=== PATIENT | female | born 1945 | race American Indian/Alaskan Native ===

== ENCOUNTER 2021-11-05 02:12 | Emergency (ER) | payer MEDICARE ==
[2021-11-05 02:59] VITALS: BP 178/70
[2021-11-05] MEDS ORDERED: ONDANSETRON 4 MG ODT TAB PO ONE (04:13)
[2021-11-05] MEDS ORDERED: HYDROcodone/ACETAMINOPHEN 7.5-325MG TAB PO ONE (04:13)
[2021-11-05] MEDS ORDERED: predniSONE 50 MG TAB PO ONE (04:13)
--- NOTE | 2021-11-05 04:19 | Emergency Department Report ---
ED Extremity Problem HPI - General Chief complaint: Extremity Injury, Upper Stated complaint: SHOULDER PAIN Time Seen by Provider: 11/05/21 03:45 Source: patient, EMS Mode of arrival: Stretcher Limitations: No Limitations - History of Present Illness Initial comments: Patient is a 75-year-old -[place] female with a history of hypertension, chronic osteoarthritis, chronic rheumatoid arthritis, fibromyalgia and ESRD on hemodialysis who presents to the ED with complaint of acute onset persistent bilateral shoulder pain after lifting heavy luggage in transit from [facility], and finding herself on the street with no way to go in the cold weather about 6 hours ago. Patient states that the pain in her shoulders radiates to her fingers with tingling sensation. Patient states that the pain is typical of her chronic osteoarthritis and rheumatoid arthritis flareup. Patient states that she just returned from [facility] and was supposed to picked up by her caregiver but she failed to turn up at the place where they had agreed to meet for pickup. Patient states that due to the fact that she had multiple luggage and she had to drag them along as she walked on the street her bilateral shoulder pain got worse. Patient states that she therefore called the EMS to bring her to the ED for evaluation. Patient states that she usually takes Ultram 50 mg for her pain but ran out of the same about 1 week ago. Patient denies chest pain, shortness of breath, fever, chills, cough, sore throat, headache, fall, nausea and vomiting, abdominal pain or palpitations. MD Complaint: extremity pain (Bilateral shoulder pain), joint paint (Bilateral shoulder pain), other (chronic osteoarthritis; chronic pain syndrome) -: Sudden, hour(s) (6) Location: upper extremity (Bilateral shoulder pain) History of Same: Yes (chronic pain) -: Yes arthralgia, No associated dyspnea, No associated chest pain Radiation: none Severity scale (0 -10): 8 Quality: aching, sharp Improves with: nothing Worsens with: weight bearing, exertion, palpation Associated Symptoms: denies other symptoms, arthralgias (Painful bilateral shoulder pain). denies: chest pain, shortness of breath - Related Data Previous Rx's Medication Instructions Recorded Last Taken Type Acetaminophen [Tylenol] 500 mg PO Q6HR PRN #30 tablet 11/05/21 Unknown Rx traMADoL [Ultram] 50 mg PO Q6HR PRN #12 tablet 11/05/21 Unknown Rx Allergies Allergy/AdvReac Type Severity Reaction Status Date / Time No Known Allergies Allergy Unverified 11/05/21 02:49 ED Review of Systems ROS: Stated complaint: SHOULDER PAIN Other details as noted in HPI Constitutional: denies: chills, fever Eyes: denies: eye pain, eye discharge, vision change ENT: denies: ear pain, throat pain Respiratory: denies: cough, shortness of breath, wheezing Cardiovascular: denies: chest pain, palpitations Endocrine: no symptoms reported Gastrointestinal: denies: abdominal pain, nausea, vomiting, diarrhea Genitourinary: denies: urgency, dysuria, discharge Musculoskeletal: arthralgia (Bilateral shoulder pain). denies: back pain, joint swelling Skin: denies: rash, lesions Neurological: denies: headache, weakness, paresthesias Psychiatric: denies: anxiety, depression Hematological/Lymphatic: denies: easy bleeding, easy bruising ED Past Medical Hx - Past Medical History Previous Medical History?: Yes Hx Hypertension: Yes Hx Renal Disease: Yes (ESRD on hemodialysis) Hx Arthritis: Yes (Chronic osteoarthritis; chronic rheumatoid arthritis) Additional medical history: Chronic pain syndrome; fibromyalgia - Surgical History Past Surgical History?: No - Social History Smoking Status: Never Smoker - Medications Home Medications: Home Medications Medication Instructions Recorded Confirmed Last Taken Type Acetaminophen [Tylenol] 500 mg PO Q6HR PRN #30 tablet 11/05/21 Unknown Rx traMADoL [Ultram] 50 mg PO Q6HR PRN #12 tablet 11/05/21 Unknown Rx ED Physical Exam - General Limitations: No Limitations General appearance: alert, in no apparent distress - Head Head exam: Present: atraumatic, normocephalic, normal inspection - Eye Eye exam: Present: normal appearance, PERRL, EOMI Pupils: Present: normal accommodation - ENT ENT exam: Present: normal exam, normal orophraynx, mucous membranes moist, TM's normal bilaterally, normal external ear exam - Neck Neck exam: Present: normal inspection, full ROM. Absent: tenderness - Respiratory Respiratory exam: Present: normal lung sounds bilaterally. Absent: respiratory distress, wheezes, rales, rhonchi, chest wall tenderness, accessory muscle use, decreased breath sounds, other - Cardiovascular Cardiovascular Exam: Present: regular rate, normal rhythm, normal heart sounds. Absent: systolic murmur, diastolic murmur, rubs, gallop - GI/Abdominal GI/Abdominal exam: Present: soft, normal bowel sounds. Absent: tenderness, guarding, rebound, hyperactive bowel sounds, hypoactive bowel sounds, organomegaly, mass - Extremities Exam Extremities exam: Present: normal inspection, full ROM, tenderness (Palpable reproducible bilateral shoulder tenderness), normal capillary refill. Absent: pedal edema, joint swelling, calf tenderness - Back Exam Back exam: Present: normal inspection, full ROM. Absent: tenderness, CVA tenderness (R), CVA tenderness (L), muscle spasm, paraspinal tenderness, vertebral tenderness - Neurological Exam Neurological exam: Present: alert, oriented X3, CN II-XII intact, normal gait, reflexes normal - Psychiatric Psychiatric exam: Present: normal affect, normal mood - Skin Skin exam: Present: warm, dry, intact, normal color. Absent: rash ED Course Vital Signs 11/05/21 11/05/21 02:57 04:20 Temperature 98.7 F Pulse Rate 82 Respiratory 18 16 Rate Blood Pressure 178/70 O2 Sat by Pulse 97 Oximetry ED Medical Decision Making - Medical Decision Making This is a 75-year-old -[place] female with a history of hypertension, chronic osteoarthritis, chronic rheumatoid arthritis, fibromyalgia and ESRD on hemodialysis who presents to the ED with complaint of acute onset persistent bilateral shoulder pain after lifting heavy luggage in transit from [facility], and finding herself on the street with no way to go in the cold weather about 6 hours ago. Patient states that the pain in her shoulders radiates to her fingers with tingling sensation. Patient states that the pain is typical of her chronic osteoarthritis and rheumatoid arthritis flareup. Patient states that she just returned from [facility] and was supposed to picked up by her caregiver but she failed to turn up at the place where they had agreed to meet for pickup. Patient states that due to the fact that she had multiple luggage and she had to drag them along as she walked on the street her bilateral shoulder pain got worse. Patient states that she therefore called the EMS to bring her to the ED for evaluation. Patient states that she usually takes Ultram 50 mg for her pain but ran out of the same about 1 week ago. In the ED, patient is alert and oriented x3 and is not in any distress. Patient however appears to be in significant pain. Patient was treated for pain in the ED and observed in the ED for 2 hours. On reevaluation, patient pain is well controlled medication. Patient will discharge home on medications for pain and advised to follow-up with her primary care physician in 5 to 7 days for reevaluation or return to the ED immediately if symptoms get worse. - Differential Diagnosis Chronic pain syndrome; chronic osteoarthritis; muscle strain; Critical care attestation.: If time is entered above; I have spent that time in minutes in the direct care of this critically ill patient, excluding procedure time. ED Disposition Clinical Impression: Chronic pain syndrome, Chronic osteoarthritis Muscle strain of shoulder region Qualifiers: Encounter type: initial encounter Laterality: unspecified laterality Qualified Code(s): S46.919A - Strain of unspecified muscle, fascia and tendon at shoulder and upper arm level, unspecified arm, initial encounter Disposition: HOME / SELF CARE / HOMELESS Is pt being admited?: No Does the pt Need Aspirin: No Condition: Stable Instructions: Arthritis, [id number], Osteoarthritis, Muscle Strain, [id number], Chronic Pain, Adult Additional Instructions: Take medication with food, drink plenty of fluids and follow-up with primary care physician in 5 to 7 days for reevaluation. Return to the ED immediately if symptoms get worse. Prescriptions: Acetaminophen [Tylenol] 500 mg PO Q6HR PRN #30 tablet PRN Reason: Pain , Severe (7-10) traMADoL [Ultram] 50 mg PO Q6HR PRN #12 tablet PRN Reason: Pain Referrals: [facility] [Provider Group] - 7-10 days Time of Disposition: 04:19 Print Language: SAMI
== END 2021-11-05 04:53 | disposition home or self-care (01) ==
LOC: ED 02:12
DX: S46.919A Strain of unspecified muscle, fascia and tendon at shoulder and upper arm level, unspecified arm, initial encounter (principal); G89.4 Chronic pain syndrome; M19.90 Unspecified osteoarthritis, unspecified site; I12.0 Hypertensive chronic kidney disease with stage 5 chronic kidney disease or end stage renal disease; N18.6 End stage renal disease; Z99.2 Dependence on renal dialysis; X50.0XXA Overexertion from strenuous movement or load, initial encounter; Y93.89 Activity, other specified; Y92.89 Other specified places as the place of occurrence of the external cause; Y99.8 Other external cause status
CPT/HCPCS: 99283; J7512; J3490; Q0162